=== PATIENT | male | born 1960 | race African-American/Black ===

== ENCOUNTER 2017-12-11 14:55 | Emergency (ER) | payer MEDICAID ==
[~2017-12-11] VITALS: Ht 175.3 cm; Wt 71.3 kg
[2017-12-11] MEDS ORDERED: LIDOCAINE 1%, 10ML INFIL ONE (15:30)
[2017-12-11] MEDS ORDERED: DIPH,PERTUSS(ACELL),TET VAC/PF 0.5 ML IM-VACC ONE ×2 (15:30→15:32)
[2017-12-11] MEDS ORDERED: LIDOCAINE-MPF 1%, 2ML ONE (15:31)
[2017-12-11 15:48] LABS: BASOPHILS # (AUTO) 0.01 x10^3/uL (0-0.1); BASOPHILS % (AUTO) 0 % (0-1); EOSINOPHILS # (AUTO) 0.01 x10^3/uL (0-0.4); EOSINOPHILS % (AUTO) 0 % (1-7); LYMPHOCYTES # (AUTO) 0.52 x10^3/uL (1-3.4); LYMPHOCYTES % (AUTO) 8 % (22-44); MD NO; MEAN CORPUSCULAR HEMOGLOBIN 28.1 pg (27.5-34.5); MEAN CORPUSCULAR HGB CONC 32.8 g/dL (33.2-36.2); MEAN CORPUSCULAR VOLUME 85.7 fL (81-97); MEAN PLATELET VOLUME 8.3 fL (7.4-10.4); MONOCYTES # (AUTO) 0.37 x10^3/uL (0.2-0.8); MONOCYTES % (AUTO) 5 % (2-9); NEUTROPHILS # (AUTO) 6.01 x10^3/uL (1.8-6.8); NEUTROPHILS % (AUTO) 87 % (42-75); PLATELET COUNT 197 x10^3/uL (130-400); RED BLOOD COUNT 5.35 x10^6/uL (4.38-5.82); RED CELL DISTRIBUTION WIDTH 14.6 % (9.4-14.8)
[2017-12-11 15:59] LABS: ALBUMIN 3.2 g/dL (3.4-5.0); ANION GAP 4 mmol/L (5-15); CALCIUM 8.4 mg/dL (8.5-10.1); CHLORIDE 107 mmol/L (98-107)
[2017-12-11 16:01] LABS: CREATININE 0.96 mg/dL (0.7-1.3)
[2017-12-11 16:49] VITALS: BP 131/80
== END 2017-12-11 16:51 | disposition home or self-care (01) ==
LOC: ED 16:04
DX: L02.213 Cutaneous abscess of chest wall (principal); F17.200 Nicotine dependence, unspecified, uncomplicated
CPT/HCPCS: 10060; 36415; 80048; 82040; 83605; 85025; 87040; 90471; 90715

== ENCOUNTER 2018-04-27 07:54 | Emergency (ER) | payer MEDICAID ==
[~2018-04-27] VITALS: Ht 175.3 cm; Wt 69.8 kg
[2018-04-27 07:55] VITALS: BP 129/74
[2018-04-27] MEDS ORDERED: LIDOCAINE-MPF 2%, 2ML ONE (08:22)
[2018-04-27] MEDS ORDERED: LIDOCAINE 2%, 20ML SQ ONE (08:30)
== END 2018-04-27 09:32 | disposition home or self-care (01) ==
LOC: ED 09:16
DX: L02.213 Cutaneous abscess of chest wall (principal); F17.200 Nicotine dependence, unspecified, uncomplicated
CPT/HCPCS: 10060; 99283

== ENCOUNTER 2018-04-29 11:12 | Emergency (ER) | payer MEDICAID ==
[~2018-04-29] VITALS: Ht 175.3 cm; Wt 75.0 kg
[2018-04-29 11:29] VITALS: BP 108/69
== END 2018-04-29 12:17 | disposition home or self-care (01) ==
LOC: ED 12:00
DX: L02.213 Cutaneous abscess of chest wall (principal)
CPT/HCPCS: 99283

== ENCOUNTER 2019-07-02 18:31 | Emergency (ER) | payer MEDICAID ==
[~2019-07-02] VITALS: Ht 175.3 cm; Wt 74.5 kg
[2019-07-02 18:36] VITALS: BP 117/69
[2019-07-02] MEDS ORDERED: AZITHROMYCIN 500 MG TABLET ONE (19:06)
[2019-07-02] MEDS ORDERED: CEFTRIAXONE 250 MG ONE (19:07)
--- NOTE | 2019-07-02 19:15 | NUR ---
PT MEDICATED PER MAR
[2019-07-02] MEDS ORDERED: CEFTRIAXONE 250 MG IM ONE (19:30)
[2019-07-02] MEDS ORDERED: AZITHROMYCIN 500 MG TABLET PO ONE (19:30)
== END 2019-07-02 19:33 | disposition home or self-care (01) ==
LOC: ED 19:25
DX: R30.0 Dysuria (principal); F17.200 Nicotine dependence, unspecified, uncomplicated; Z72.9 Problem related to lifestyle, unspecified
CPT/HCPCS: 87491; 87591; 96372; 99283; J0696

== ENCOUNTER 2019-10-19 06:37 | Emergency (ER) | payer MEDICAID ==
[~2019-10-19] VITALS: Ht 175.3 cm; Wt 70.6 kg
[2019-10-19 06:44] VITALS: BP 115/80
--- NOTE | 2019-10-19 07:10 | NUR ---
PT WORKS NIGHTS AT [facility], ON THE EVENING OF 10/16 AT APPROX 0430 HE HAD A BRIEF PERIOD OF "DIZZINESS" LASTING ABOUT 10MIN. WITH +N/V X 1. DENIES ANY DEFICITS OF MOVEMENT, SENSATION, OR SPEECH. HE LEFT WORK AND WAS TOLD HE WOULD NEED TO GET CHECKED OUT BY A DOCTOR BEFORE HE COULD RETURN TO WORK. HE CAM YESTERDAY 10/17 BUT THE WAIT TIME WAS 6HRS SO HE CAME IN THIS MORNING. PT DENIES ANY SYMPTOMS SINCE THAT TIME.
--- NOTE | 2019-10-19 07:44 | NUR ---
Patient/Caregiver given discharge instructions and they have confirmed that they understand the instructions. Patient ambulatory with steady gait.
== END 2019-10-19 07:45 | disposition home or self-care (01) ==
LOC: ED 07:35
DX: R55 Syncope and collapse (principal)
CPT/HCPCS: 93005; 99283

== ENCOUNTER 2020-01-27 08:44 | Emergency (ER) | payer MEDICAID ==
[~2020-01-27] VITALS: Ht 175.3 cm; Wt 65.5 kg
[2020-01-27 09:24] LABS: MICROSCOPIC AUTO
--- NOTE | 2020-01-27 09:31 | NUR ---
RN INTEGRITY: PT AMBULATORY WITH STEADY GAIT TO ROOM AT THIS TIME. TED
--- NOTE | 2020-01-27 09:37 | NUR ---
Pt to room from lobby. Pt states urine sample provided while waiting in lobby. NADN. No other needs requested. Pt states, "I had sex 2-3 days ago and I can just tell something is there in my penis. I doesn't hurt or anything, but something is just there." Pt denies pain or other symptoms at this time. Call light within reach.
[2020-01-27] MEDS ORDERED: CEFTRIAXONE 1,000 MG IM ONE (10:30)
[2020-01-27] MEDS ORDERED: AZITHROMYCIN 500 MG TABLET PO ONE (10:30)
[2020-01-27] MEDS ORDERED: AZITHROMYCIN 500 MG TABLET ONE (10:42)
[2020-01-27] MEDS ORDERED: CEFTRIAXONE 250 MG ONE (10:42)
[2020-01-27 11:00] VITALS: BP 145/79
--- NOTE | 2020-01-27 11:00 | NUR ---
REPORT RC'VD FROM MARYLIN JARAMILLO. PT RC'VD ABX, NO S/S OF REACTION. D/C INSTRUCTIONS & F/U APPT RV'WD WITH PT, HE VERBALIZES UNDERSTANDING. AMBULATED OUT OF ED WITHOUT DIFFICULTY.
== END 2020-01-27 11:02 | disposition home or self-care (01) ==
LOC: ED 10:48
DX: N34.2 Other urethritis (principal)
CPT/HCPCS: 81001; 87086; 87491; 87591; 96372; 99283; J0696

== ENCOUNTER 2020-02-15 10:01 | Emergency (ER) | payer MEDICAID ==
[~2020-02-15] VITALS: Ht 175.3 cm; Wt 67.4 kg
--- NOTE | 2020-02-15 10:30 | NUR ---
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
--- NOTE | 2020-02-15 10:38 | NUR ---
59 Y/O MALE PRESENTS TO ED WITHC/O RIGHT LEG PAIN. PER PT "I HAD A BLOOD CLOT 10 YEARS AGO. OVER THE LAST THREE DAYS MY RIGHT CALF PAIN HAS GOTTEN REAL BAD. IT'S SWOLLEN EVERYWHERE." PT PLACED ON CONT PULSE OX, NIBP. PT IN GOWN. NADN. NO C/O N/V/D, TRAUMA, SYNCOPE, CP, F/C.
[2020-02-15 12:14] VITALS: BP 106/67
--- NOTE | 2020-02-15 12:14 | NUR ---
Patient/Caregiver given discharge instructions and they have confirmed that they understand the instructions. Patient ambulatory with steady gait USING CRUTCHES. PT LEFT WITH ALL PERSONAL BELONGINGS.
== END 2020-02-15 12:16 | disposition home or self-care (01) ==
LOC: ED 11:54
DX: M71.21 Synovial cyst of popliteal space [Baker], right knee (principal); M79.605 Pain in left leg; M79.89 Other specified soft tissue disorders; Z86.718 Personal history of other venous thrombosis and embolism
CPT/HCPCS: 99284

== ENCOUNTER → 2020-02-15 | Outpatient (CLI) | payer MEDICAID | END | disposition home or self-care (01) | LOC: RAD 15:23 | PROVIDERS: ATTEND Physician Assistant | DX: M25.461 Effusion, right knee (principal); M25.861 Other specified joint disorders, right knee ==

== ENCOUNTER 2020-03-12 08:14 | Outpatient (CLI) | payer MEDICAID ==
[2020-03-12] MEDS ORDERED: GADOTERATE 10 MMOL/20 ML SYR ONE (14:41)
== END 2020-03-12 23:59 | disposition home or self-care (01) ==
LOC: RAD 08:14
PROVIDERS: ATTEND Physician Assistant
DX: M71.21 Synovial cyst of popliteal space [Baker], right knee (principal); M89.8X6 Other specified disorders of bone, lower leg
CPT/HCPCS: 73720; A9575

== ENCOUNTER 2020-11-30 08:36 | Emergency (ER) | payer MEDICAID ==
[~2020-11-30] VITALS: Ht 175.3 cm; Wt 67.6 kg
--- NOTE | 2020-11-30 09:07 | NUR ---
PT WITH DECREASED HEARING IN L. EAR. STATES HIS HEARING IS MUFFLED. DENIES EAR DRAINAGE AND EAR TRAUMA. PT ATTACHED TO MONITORS. VSS. NADN. POSTIONED TO COMFORT. AWAITNG ORDERS.
--- NOTE | 2020-11-30 09:08 | NUR ---
LITZY YEE AT BEDSIDE FOR EVALUATION
[2020-11-30] MEDS ORDERED: DOCUSATE 50 MG/5 ML, 10ML UDC ONE (09:12)
--- NOTE | 2020-11-30 09:27 | NUR ---
COLACE ADMIN IN R. EAR ORDERED. EMT AT BEDSIDE TO IRRIGATE EAR. NADN. TRENT.
[2020-11-30] MEDS ORDERED: DOCUSATE 50 MG/5 ML ORAL SOL OTIC ONE (09:30)
--- NOTE | 2020-11-30 10:54 | NUR ---
BEDSIDE REPORT GIVEN TO ALEA RN AND JADYN RN.
[2020-11-30 11:04] VITALS: BP 110/72
== END 2020-11-30 11:06 | disposition home or self-care (01) ==
LOC: ED 10:19
DX: H61.21 Impacted cerumen, right ear (principal); Z86.718 Personal history of other venous thrombosis and embolism
CPT/HCPCS: 69209; 99283